=== PATIENT | female | born 1955 | race Caucasian/White ===

== ENCOUNTER 2019-08-07 12:44 | Outpatient (CLI) | payer MEDICARE, OTHER ==
--- NOTE | 2019-08-26 16:43 | MMO ---
Bilateral MAMMO Bilat Screen [facility]. CLINICAL HISTORY: Patient is 64 years old and is seen for screening. The patient has the following family history of breast cancer: sister, at age 65. The patient has no personal history of cancer. VIEWS: The views performed were: bilateral craniocaudal with tomosynthesis and bilateral mediolateral oblique with tomosynthesis. This study has been interpreted with the assistance of computer-aided detection. MAMMOGRAM FINDINGS: There are scattered fibroglandular densities. Benign calcifications are noted bilaterally. There are no suspicious masses, suspicious calcifications, or new areas of architectural distortion. IMPRESSION: THERE IS NO MAMMOGRAPHIC EVIDENCE OF MALIGNANCY. A ROUTINE FOLLOW-UP MAMMOGRAM IN 1 YEAR IS RECOMMENDED. THE RESULTS OF THIS EXAM WERE SENT TO THE PATIENT. ACR BI-RADS Category 2 - Benign finding MAMMOGRAPHY NOTE: 1. A negative mammogram report should not delay a biopsy if a dominant of clinically suspicious mass is present. 2. Approximately 10% to 15% of breast cancers are not detected by mammography. 3. Adenosis and dense breasts may obscure an underlying neoplasm. Reported by: DORENE BISWAS MD Electonically Signed: [id number]
== END 2019-08-07 12:45 | disposition home or self-care (01) ==
LOC: BICMAMMO 12:44
PROVIDERS: ATTEND Family Medicine
DX: Z12.31 Encounter for screening mammogram for malignant neoplasm of breast (principal); Z80.3 Family history of malignant neoplasm of breast
CPT/HCPCS: 77063; 77067

== ENCOUNTER 2019-11-24 12:26 | Outpatient (CLI) | payer MEDICARE, OTHER ==
--- NOTE | 2019-11-24 13:19 | MRI ---
MRI Lower Ext Jt Rt WO Con History: M 23.551 acute right hip pain Comparison: Hip radiograph 02/20/2019 Findings: Bones: On the T1 weighted imaging sequence there are no abnormal foci of marrow signal repl acement. Bilateral acetabular osteophyte formation. Old narrowing of the pubic symphysis with osteophytosis and degeneration of the intra-articular disc. Moderate enthesopathic changes of the hamstring tendons. No SI joint joint edema. Tendons: Moderate tendinosis common hamstring and semimembranosus tendons. Low-grade undersurface par tial tearing. The iliopsoas tendon is intact. Moderate tendinosis and partial tearing of the loose medius and gluteus minimus tendons. Soft tissues: Mild greater trochanteric bursitis. No significant narrowing of the quadratus femoris s pace. The ligamentum teres is intact. Muscles: Low-grade atrophy of the gluteus medius and minimus muscle right. Labrum: Loss of volume and chronic tearing of the anterior superior labrum. Impression: 1. Volume loss with chronic tearing of the anterior superior labrum. 2. No acute fracture or malalignment. 3. Moderate greater trochanteric bursitis with gluteus medius and minimus tendinosis and partial tear ing. 4. Moderate tendinosis and undersurface partial tearing of the hamstring tendons.
== END 2019-11-24 12:27 | disposition home or self-care (01) ==
LOC: BICMRI 12:26
PROVIDERS: ATTEND Family Medicine
DX: M25.551 Pain in right hip (principal); S76.311A Strain of muscle, fascia and tendon of the posterior muscle group at thigh level, right thigh, initial encounter; M70.61 Trochanteric bursitis, right hip; S73.191A Other sprain of right hip, initial encounter; M67.951 Unspecified disorder of synovium and tendon, right thigh

== ENCOUNTER 2021-01-21 13:18 | Outpatient (CLI) | payer MEDICARE | END 2021-01-21 13:19 | disposition home or self-care (01) | LOC: BICMAMMO 13:18 | PROVIDERS: ATTEND Family Medicine | DX: Z12.31 Encounter for screening mammogram for malignant neoplasm of breast (principal); Z80.3 Family history of malignant neoplasm of breast | CPT/HCPCS: 77063; 77067 ==

== ENCOUNTER 2021-11-30 17:42 | Emergency (ER) | payer MEDICARE, OTHER ==
[2021-11-30] MEDS ORDERED: Ondansetron PF 4 MG/2 ML Vial ONE (18:35)
[2021-12-01 09:44] LABS: SARS-CoV-2 PCR by NAA DETECTED (NotDetected)
== END 2021-11-30 20:04 | disposition home or self-care (01) ==
LOC: ERS 17:42
DX: U07.1 COVID-19 (principal); I10 Essential (primary) hypertension; E11.9 Type 2 diabetes mellitus without complications; E78.5 Hyperlipidemia, unspecified; M19.90 Unspecified osteoarthritis, unspecified site; Z79.84 Long term (current) use of oral hypoglycemic drugs; Z79.899 Other long term (current) drug therapy
CPT/HCPCS: 71045; 94760; 96374; 99284; U0003; U0005; J2405